=== PATIENT | male | born 1995 | race African-American/Black ===

== ENCOUNTER 2017-10-17 18:55 | Emergency (ER) | payer MEDICAID ==
[~2017-10-17] VITALS: Ht 193 cm; Wt 78.0 kg
[2017-10-17 21:47] VITALS: BP 101/60
== END 2017-10-18 00:58 | disposition left against medical advice (07) ==
LOC: ER 19:09
DX: S60.221A Contusion of right hand, initial encounter (principal); F17.200 Nicotine dependence, unspecified, uncomplicated; F12.10 Cannabis abuse, uncomplicated; Y04.0XXA Assault by unarmed brawl or fight, initial encounter; Y93.89 Activity, other specified; Y92.89 Other specified places as the place of occurrence of the external cause
CPT/HCPCS: 73130; 99284

== ENCOUNTER 2017-11-09 22:25 | Emergency (ER) | payer MEDICAID ==
[~2017-11-09] VITALS: Ht 190.5 cm; Wt 80.0 kg
[2017-11-10] MEDS ORDERED: IBUPROFEN 600MG TABLET PO ONE (05:15)
[2017-11-10 06:30] VITALS: BP 115/70
[2017-11-10] MEDS ORDERED: LIDOCAINE HCL/PF 1% 10 MG/ML 5ML VIAL IJ ONE (06:30)
[2017-11-10] MEDS ORDERED: CEFTRIAXONE SODIUM 1 G/VIAL IM ONE (06:30)
[2017-11-10] MEDS ORDERED: BACITRACIN ZINC OINT UDPKT TOP ONE (06:30)
[2017-11-10] MEDS ORDERED: TETANUS, DIPHTHERIA, PERTUSSIS VAC/PF 0.5ML (>7YR OLD) IM ONE (06:30)
== END 2017-11-10 07:23 | disposition home or self-care (01) ==
LOC: ER 22:25
DX: S62.650A Nondisplaced fracture of middle phalanx of right index finger, initial encounter for closed fracture (principal); F12.10 Cannabis abuse, uncomplicated; Y08.89XA Assault by other specified means, initial encounter; Y93.89 Activity, other specified; Y92.89 Other specified places as the place of occurrence of the external cause; Y99.8 Other external cause status
CPT/HCPCS: 29130; 73140; 90471; 90715; 96372; 99284; J0696; J3490

== ENCOUNTER 2022-08-06 05:06 | Emergency (ER) | payer MEDICAID ==
[~2022-08-06] VITALS: Ht 193 cm; Wt 78.0 kg
[2022-08-06 05:43] LABS: BASOPHILS % 0.3 % (0.0-2.0); HEMATOCRIT. 44.1 % (42.0-52.0); HEMOGLOBIN. 14.6 g/dL (14.0-18.0); LYMPHOCYTES % 7.5 % (20.0-50.0); MEAN CORPUSCULAR HEMOGLOBIN 27.7 pg (28.0-32.0); MEAN CORPUSCULAR VOLUME 83.8 fL (80.0-94.0); MEAN PLATELET VOLUME 7.3 fl (7.4-10.4); NEUTROPHILS % 87.2 % (40.0-76.0); PLATELET 273 x1000/uL (130-400); RED BLOOD CELL COUNT 5.27 mill/uL (4.7-6.1); RED CELL DISTRIBUTION WIDTH 14.1 % (11.6-14.6)
[2022-08-06 05:52] LABS: CHLORIDE 109 mEq/L (98-107)
[2022-08-06 06:00] LABS: ETHANOL BLOOD < 10 mg/dL
[2022-08-06] MEDS ORDERED: ACETAMINOPHEN 325MG TABLET PO ONE (10:30)
[2022-08-06 10:47] VITALS: BP 116/66
== END 2022-08-06 10:50 | disposition home or self-care (01) ==
LOC: ER 05:06
DX: F12.10 Cannabis abuse, uncomplicated (principal)
CPT/HCPCS: 36415; 80053; 80320; 82962; 85025; 93005; 99284; G0480

== ENCOUNTER 2024-05-14 13:18 | Emergency (ER) | payer MEDICAID ==
[~2024-05-14] VITALS: Ht 172.7 cm; Wt 63.3 kg
[2024-05-14 13:41] VITALS: BP 109/37; PULSE 76; RESP 15; TEMP 36.4; O2SAT 96
[2024-05-14] MEDS: LEVETIRACETAM 500MG TABLET PO ONE (14:07)
== END 2024-05-14 13:32 | disposition home or self-care (01) ==
LOC: ER 13:18
DX: R56.9 Unspecified convulsions (principal); F12.90 Cannabis use, unspecified, uncomplicated
CPT/HCPCS: 99283; A4606